=== PATIENT | female | born 2005 | race Hispanic/Latino ===

== ENCOUNTER 2025-06-26 14:53 | Emergency (ER) | payer SELFPAY ==
[2025-06-26] MEDS ORDERED: Lidocaine 1% PF 5 ML VIAL ONE (15:36)
[2025-06-26] MEDS ORDERED: Bacitracin 1 PK ONE (16:12)
== END 2025-06-26 16:29 | disposition home or self-care (01) ==
LOC: ERS 14:53
DX: S61.412A Laceration without foreign body of left hand, initial encounter (principal); W26.0XXA Contact with knife, initial encounter; Y93.89 Activity, other specified